=== PATIENT | female | born 1945 | race Caucasian/White ===

== ENCOUNTER 2017-02-05 10:15 | Inpatient (IN) | payer OTHER ==
[2016-12-25 09:09] VITALS: BMI 32.0
--- NOTE | 2016-12-25 10:02 | PAT Medication Instructions ---
Service Date Dec 25, 2016. Current Home Medication List Acetaminophen (Acetaminophen ER), 2 TABS PO BID Aspirin (Aspirin Ec), 81 MG PO QAM Digestive Enzymes (Digestive Enzyme), 1 TAB PO BID Digestive Enzymes (Multi-Enzyme), 1 TAB PO AC Lorazepam (Ativan), 1 MG PO HS Magnesium Oxide (Mag-Ox), 400 MG PO BID Melatonin (Kp Melatonin), 1 TAB PO HS Multiple Minerals W/ Vitamins (Calcium Citrate Plus), 3,000 MG PO BID Multiple Vitamins W/ Minerals (Multi Vitamin/Minerals Fu), 1 TAB PO BID [place] 3 Fatty Acids-[place] 6 Fa ([place] 3-6-9 Complex), 4,000 MG PO BID Potassium (Potassium), 4 TABS PO BID Valerian (Valeriana Officinali (Valerian Root), 1 CAP PEG HS [Homepathic Products], 2 TABS SL HS [vitaminb c ER], 1,000 MG PO HS Medication Instructions For Your Scheduled Surgery - Hold the following medications 2 weeks prior to surgery: [place] 3 Fatty Acids-[place] 6 Fa ([place] 3-6-9 Complex), 4,000 MG PO BID - Hold the following medications the morning of surgery: Potassium (Potassium), 4 TABS PO BID Multiple Minerals W/ Vitamins (Calcium Citrate Plus), 3,000 MG PO BID Multiple Vitamins W/ Minerals (Multi Vitamin/Minerals Fu), 1 TAB PO BID Magnesium Oxide (Mag-Ox), 400 MG PO BID Digestive Enzymes (Digestive Enzyme), 1 TAB PO BID Digestive Enzymes (Multi-Enzyme), 1 TAB PO AC - Take the following medications the morning of surgery with a sip of water: Aspirin (Aspirin Ec), 81 MG PO QAM (okay to take per surgeon) Acetaminophen (Acetaminophen ER), 2 TABS PO BID - Take the following medications as scheduled the night before surgery: Potassium (Potassium), 4 TABS PO BID Multiple Minerals W/ Vitamins (Calcium Citrate Plus), 3,000 MG PO BID Multiple Vitamins W/ Minerals (Multi Vitamin/Minerals Fu), 1 TAB PO BID Melatonin (Kp Melatonin), 1 TAB PO HS Magnesium Oxide (Mag-Ox), 400 MG PO BID Lorazepam (Ativan), 1 MG PO HS Melatonin 3mg PO HS Acetaminophen (Acetaminophen ER), 2 TABS PO BID Digestive Enzymes (Digestive Enzyme), 1 TAB PO BID Digestive Enzymes (Multi-Enzyme), 1 TAB PO AC [vitaminb c ER], 1,000 MG PO HS Valerian (Valeriana Officinali (Valerian Root), 1 CAP PEG HS [Homepathic Products], 2 TABS SL HS If you have any questions please call us at [phone] or [phone] or [phone]
[2016-12-25 10:35] LABS: BASO % 0.3 %; BASO ABS # 0.02 K/uL (0-0.2); COMPLETE YES; EOS % 6.1 %; HEMATOCRIT 39.3 % (37-47); IG% 0.2 %; LYMPH % 32.4 %; LYMPH ABS # 2.11 K/uL (1.2-3.4); MEAN CELL VOLUME 79.9 fL (80-100); MEAN CORPUSCULAR HEMOGLOBIN 25.6 pg (25-34); MEAN CORPUSCULAR HGB CONC 32.1 g/dl (32-36); MEAN PLATELET VOLUME 8.8 fL (7.4-10.4); MONO % 9.7 %; NEUT % 51.3 %; PLATELET COUNT 276 K/uL (130-400); RED BLOOD COUNT 4.92 M/uL (4.2-5.4); WHITE BLOOD COUNT 6.51 K/uL (4.8-10.8)
--- NOTE | 2016-12-25 10:38 | DIAGNOSTIC IMAGING REPORT ---
CHEST PREADMISSION(PA/LAT) CLINICAL HISTORY: PAT preoperative evaluation COMPARISON STUDY: No previous studies for comparison. FINDINGS: Fixed hiatal hernia. Lungs are clear. Diaphragms are smooth. IMPRESSION: Fixed hiatal hernia. Otherwise negative chest. Electronically signed by: Quang Gu M.D. 12/25/2016 10:37 AM Dictated Date/Time: 12/25/2016 10:37 AM
[2016-12-25 10:54] LABS: PROTHROMBIN TIME (PATIENT) 10.7 SECONDS (9.0-12.0)
[2016-12-25 11:51] LABS: BUN/CREATININE RATIO 23.9 (10-20); CREATININE 0.87 mg/dl (0.60-1.20); POTASSIUM 4.1 mmol/L (3.5-5.1)
[2016-12-25 11:56] LABS: CALCIUM 10.2 mg/dl (8.5-10.1)
--- NOTE | 2017-02-01 19:45 | HISTORY & PHYSICAL EXAMINATION ---
DATE OF ADMISSION: 02/05/2017 CHIEF COMPLAINT: Bilateral knee pain, right greater than left. HISTORY OF PRESENT ILLNESS: The patient is a 71-year-old female from [place] who presents for treatment of her knees. She has got a long history of bilateral knee pain and discomfort. The left knee actually has been bothering her for a longer period of time, but the right knee is more intense. She has been through conservative care which provided very temporary relief. Minimal response to injection. She has become more debilitated by her pain, once again right side worse than the left. She has limited walking tolerance. She can do a lot of activities that she would like to due to her pain. She would like to proceed with surgical treatment. PAST MEDICAL HISTORY: Significant for: 1. Heart palpitations without any sequelae. 2. Irritable bowel syndrome. 3. Gastroesophageal reflux disease. 4. Hiatal hernia. 5. Arthritis. 6. Low back pain. PAST SURGICAL HISTORY: Include "female surgeries." ALLERGIES: None. CURRENT MEDICINES: Include: 1. Meloxicam. 2. Lorazepam. 3. Supplements. 4. Herbs. SOCIAL HISTORY: A 71-year-old female patient from [place]. 1-2 drinks per day. No tobacco use. FAMILY HISTORY: Noncontributory. REVIEW OF SYSTEMS: Negative for diabetes. Denies any chest pain or shortness of breath. No history of DVT or PE. No bleeding problems. PHYSICAL EXAMINATION: GENERAL: Reveals a pleasant, healthy elderly female. Looks younger than her stated age. HEENT: Benign. NECK: Supple. No lymphadenopathy. LUNGS: Clear to auscultation. HEART: Has a regular rate and rhythm. ABDOMEN: Soft, nontender, nondistended. EXTREMITIES: Grossly neurovascularly intact except as follows: Examination of both knees reveals the patient ambulates independently. She does limp and walks with a bit of a waddling gait. She has got slight varus alignment of both knees. Moderate soft tissue envelope. Her range of motion is pretty symmetrical with full extension to 120 degrees of flexion bilaterally. She is tender in medial joint line both sides. X-RAYS: X-rays of the knees reveal advanced bilateral knee DJD. The right side is a bit worse than the left, but she has got complete loss of the medial joint space on both sides, a little bit of tibial femoral subluxation. ASSESSMENT: A 71-year-old female with bilateral knee pain and degenerative joint disease, right side is a bit worse than the left and unresponsive to conservative treatment. She would like to proceed with knee replacement surgery. PLAN: We are going to take her to the operating room and do a right total knee replacement. The risks and benefits of right total knee replacement were explained to the patient including but not limited to DVT, PE, , infection, neurological injury, vascular injury, bleeding, pain, limited range of motion, stiffness, failure to relieve her symptoms, incomplete relief of symptoms, need for further surgery in the future, fracture, leg length inequality, nerve palsy, etc. The patient understands and desires to proceed. Informed consent was obtained. The patient has stopped her Meloxicam 2 weeks preop. She is planning to be discharged to home with an [facility] home health program. I will see her back 2 weeks postop. SUHAIL
[2017-02-05] VITALS (9 sets, daily range): BP systolic 94–163; BP diastolic 59–96; PULSE 72–89; TEMP 36.4–37; O2SAT 94–99; Ht 170.2 cm; Wt 95.1 kg
[~2017-02-05] VITALS: Ht 170.2 cm; Wt 95.1 kg
[~2017-02-05 10:15] MED LIST: ACET-1327 PO; ACETAMINOPHEN 500 MG TAB PO SCH; ASPI81TA28 PO; ATV/1 PO; BUPIVACAINE 0.25% 30 ML VIAL ONE; BUPIVACAINE 0.5 % 5 MG/1 ML PF 10ML VIAL ONE; BUPIVACAINE LIPOSOME 266 MG, BUPIVACAINE/EPINEPHRINE INJ 50 ML, SODIUM CHLORIDE 0.9% PF... INFIL SCH; BUPIVACAINE/EPINEPHRINE 0.25% 10 ML VIAL ONE; CEFAZOLIN 2000 MG/60 ML D5W 60 ML IV SCH; DEXAMETHASONE SOD INJ 4 MG/ML VIAL ONE; DIGE1CAP10 PO; DIGETAB PO; FAMOTIDINE 20 MG TAB PO SCH; GABAPENTIN 300 MG CAP PO SCH; LACTATED RINGER'S 1000ML 1,000 ML IV SCH; LACTATED RINGER'S 1000ML 500 ML IV ONE; LACTATED RINGER'S 1000ML IV SCH; MAGN400T6 PO; MELA1TAB5 PO; METOCLOPRAMIDE HCL 10 MG TAB PO SCH; MULT-653 PO; OMEG1CAP71 PO; POTA99TA PO; SCOPOLAMINE 1.5 MG TDSY TD SCH; TRANEXAMIC ACID INJ 1,000 MG in SODIUM CHLORIDE 0.9% 100ML 100 ML IV SCH; VALE450C4 PEG; [UNRECOGNIZED DRUG - CODE] PO; [UNRECOGNIZED DRUG - OTHER] PO; [UNRECOGNIZED DRUG - OTHER] SL
[2017-02-05] MEDS ORDERED: IMD/2 PO (11:11)
[2017-02-05] MEDS ORDERED: metoprolol PO (11:23)
[2017-02-05] MEDS ORDERED: BACITRACIN 50000 UNIT VIAL ONE (11:25)
[2017-02-05] MEDS ORDERED: SODIUM CHLORIDE 0.9% PF 50 ML VIAL ONE (11:25)
[2017-02-05] MEDS ORDERED: BUPIVACAINE LIPOSOME 1/3% 266 MG/20 ML VIAL INFIL ONE (11:25)
--- NOTE | 2017-02-05 11:47 | History & Physical Bridge Note ---
H&P Re-Evaluation Bridge Note: I have examined the patient, reviewed the History & Physical and in the interval since the performance of the History & Physical I have noted the following changes of clinical significance: No changes noted
[2017-02-05] MEDS ORDERED: EpHEDrine SULFATE 50MG/5ML SYR ONE (12:26)
[2017-02-05] MEDS ORDERED: MIDAZOLAM HCL 1 MG/ML 2ML VIAL ONE (12:26)
[2017-02-05] MEDS ORDERED: PROPOFOL IV EMULSION 10 MG/ML 20 ML VIAL IV ONE (12:26)
[2017-02-05] MEDS ORDERED: PHENYLEPHRINE 100MCG/ML 5ML SYR ONE (12:26)
[2017-02-05] MEDS ORDERED: LIDOCAINE HCL 2% 2 ML VIAL (20MG/ML) ONE (12:26)
[2017-02-05] MEDS ORDERED: FENTANYL CITRATE INJ 50 MCG/1 ML 2 ML VIAL ONE (12:26)
[2017-02-05] MEDS ORDERED: FENTANYL CITRATE INJ 50 MCG/1 ML 2 ML VIAL IV PRN (13:00)
[2017-02-05] MEDS ORDERED: ATROPINE SULFATE 0.1 MG/ML 5ML SYR IV PRN (13:00)
[2017-02-05] MEDS ORDERED: EpHEDrine SULFATE INJ 50 MG/ML AMP IV PRN (13:00)
[2017-02-05] MEDS ORDERED: ONDANSETRON INJ 2 MG/ML 2 ML VIAL IV PRN ×2 (13:00→14:00)
[2017-02-05] MEDS ORDERED: BISACODYL 10 MG SUPP PR PRN (14:00)
[2017-02-05] MEDS ORDERED: HYDROmorphone INJ 0.5 MG/0.5 ML SYR IV PRN (14:00)
[2017-02-05] MEDS ORDERED: TRAMADOL HCL 50 MG TAB PO PRN (14:00)
[2017-02-05] MEDS ORDERED: METOCLOPRAMIDE HCL INJ 5 MG/ML 2 ML VIAL IV PRN (14:00)
[2017-02-05] MEDS ORDERED: ZOLPIDEM TARTRATE 5 MG TAB PO PRN (14:00)
[2017-02-05] MEDS ORDERED: SILVER SULFADIAZINE 1% CR 50 GM JAR EXT PRN (14:00)
[2017-02-05] MEDS ORDERED: MAGNESIUM HYDROXIDE SUSP 30 ML UDC PO PRN (14:00)
--- NOTE | 2017-02-05 14:00 | [facility] Post Operative Brief Note ---
Immediate Operative Summary Operative Date Feb 05, 2017. Pre-Operative Diagnosis Right Knee Degenerative Joint Disease Post-Operative Diagnosis Same as preop Procedure(s) Performed Right Total Knee Arthroplasty Surgeon Dr. Denny Mackey Bowling Alley Operator Surgeon(s) Zach Rivas PA-C Estimated Blood Loss 50ml Findings Right Knee DJD Fluids (cc crystalloids) 1700 cc Specimens A. Right Knee Bone and Tissue Drains None Anesthesia Spinal Complication(s) None Disposition Recovery Room / PACU
--- NOTE | 2017-02-05 14:21 | DIAGNOSTIC IMAGING REPORT ---
RIGHT KNEE 2 VIEWS History: Right total knee arthroplasty. Degenerative arthritis. Postop. FINDINGS: The patient is status post a right total knee arthroplasty. The hardware is intact. No fracture or dislocation. Skin gus are in place. IMPRESSION: Right total knee arthroplasty. No evidence for hardware complication. Electronically signed by: Richard Olmedo M.D. 02/05/2017 2:20 PM Dictated Date/Time: 02/05/2017 2:19 PM
--- NOTE | 2017-02-05 14:26 | Anesthesiology Progress Note ---
Anesthesia Post Op Note Date & Time Feb 05, 2017 at 14:25 Vital Signs Pain Intensity: 0 Vital Signs Past 12 Hours Date Time Temp Pulse Resp B/P (MAP) Pulse Ox O2 Delivery O2 Flow Rate FiO2 02/05/17 14:15 81 16 111/66 98 Nasal Cannula 2 02/05/17 14:05 76 15 108/62 100 Nasal Cannula 2 02/05/17 13:59 36.3 77 16 106/62 97 Nasal Cannula 2 02/05/17 10:49 36.7 72 20 163/96 98 Notes Mental Status: alert / awake / arousable, participated in evaluation Pt Amnestic to Procedure: Yes Nausea / Vomiting: adequately controlled Pain: adequately controlled Airway Patency, RR, SpO2: stable & adequate BP & HR: stable & adequate Hydration State: stable & adequate Neuraxial Anesthesia: was administered, sensory block is resolving Anesthetic Complications: no major complications apparent
[2017-02-05] MEDS ORDERED: METO25TA56 PO (15:41)
[2017-02-05] MEDS ORDERED: LOPERAMIDE HCL 2 MG CAP PO PRN (16:00)
[2017-02-05] MEDS ORDERED: DIGESTIVE ENZYMES PO SCH (16:00)
[2017-02-05] MEDS: CHECK SCOPOLAMINE PATCH PLACEMENT SCH (16:12)
[2017-02-05] MEDS: D5W AND 1/2NSS + 20MEQ KCL 1,000 ML IV SCH (16:13)
[2017-02-05] MEDS: KETOROLAC TROMETHAMINE 15 MG/ML VIAL IV. SCH ×2 (16:17→21:59)
--- NOTE | 2017-02-05 17:41 | OPERATIVE REPORT ---
DATE OF OPERATION: 02/05/2017 SURGEON: Denny Mackey MD GENERAL CLERK: Lei Rivas PA-C PREOPERATIVE DIAGNOSIS: Right knee degenerative joint disease. POSTOPERATIVE DIAGNOSIS: Same. PROCEDURE PERFORMED: Right cemented posterior stabilized total knee arthroplasty. COMPLICATIONS: None. ESTIMATED BLOOD LOSS: 50 mL. FLUID REPLACEMENT: 1700 mL crystalloid fluid replacement. TOURNIQUET TIME: 56 minutes at 300 mmHg. ANESTHESIA: Spinal with adductor canal block. DRAINS: None. SPECIMENS: Right knee sent for pathology. OPERATIVE INDICATIONS: The patient is a 71-year-old female who has had a long history of bilateral knee pain and discomfort, right side greater than left. She has been through extensive conservative treatment without adequate relief. X-rays showed advanced medial compartment arthritis. She elected to proceed with operative treatment. OPERATIVE FINDINGS: Operative findings revealed grade 4 [id number] disease in the medial femoral condyle and medial tibial plateau as well as the patellofemoral joint. Of note, there was not extensive eburnation, but there was a full thickness cartilage deficiency medially as well as the patella in the patellofemoral joint. The lateral compartment was fairly well preserved. She had a moderate joint effusion and slight varus deformity to her knee. OPERATIVE IMPLANTS: Operative implants consisted of: 1. Biomet Vanguard size 67.5 right posterior stabilized femoral component. 2. Biomet size 67 tibial tray. 3. A 10-mm posterior stabilized polyethylene insert. 4. A 31 x 8 all poly patella. OPERATIVE PROCEDURE: The patient was taken to the operating room, identified and placed on the operating table in the supine position. All contact areas were appropriately padded. IV antibiotics were provided by the anesthesia team. A spinal anesthetic and adductor canal block had been provided in the holding area. Santa catheter was placed in sterile fashion. Right thigh tourniquet was then placed and the right lower extremity was then prepped and draped in the usual sterile fashion. The right leg was elevated and exsanguinated with an Esmarch and tourniquet was placed at 300 mmHg. An anterior approach to the right knee was then performed through a longitudinal incision centered over the patella. Sharp dissection was carried out through the subcutaneous tissues down to the level of the extensor mechanism. A medial parapatellar arthrotomy incision was made. Some subperiosteal dissection was carried out medially. The fat pad was resected from beneath the patellar tendon. The lateral patellofemoral ligament was released. The patella was everted and the knee was flexed. The osteophytes were taken off the distal femur. The ACL and PCL were then released from the distal femur and the tibia subluxated anteriorly. The external alignment jig was then placed in the anterior face of the tibia and adjusted 14 mm medially. Proximal tibial cut was made to remove about 2-3 mm of bone from the most deficient aspect of the medial tibial plateau. The tibia was sized to a size 67. Attention was then drawn to the femur. The distal femur was entered with a sharp drill bit. Intramedullary canal was suctioned. A right 5-degree valgus cutting guide was placed. Distal femoral cutting block was pinned in place. Distal femoral cut was made to take an additional 3 mm of bone off the distal femur. The distal femur cut was made. The femur was then sized to a 67.5. We actually sized almost 70, but we downsized this due to very narrow medial/lateral dimensions. Even doing this, the component was a little bit big in medial lateral dimension paulson. The AP cutting block was pinned parallel to the epicondylar axis, which was 3 degrees of external rotation. The anterior cut, anterior chamfer, posterior cut, and posterior chamfer cuts were made. Box cutting guide was placed and adjusted slight lateral and the box cut was made. The knee was flexed. The remnants of the medial and lateral menisci were excised. The osteophytes were taken off the posterior aspect of the femur. A trial femoral component was placed. The tibial tray was pinned in maximum external rotation and drill and stem punch were used to create defect in proximal tibia for the tibial tray. The knee was then trialed and the 10-mm insert fit most appropriately. Attention was then drawn to the patella. The patella was cleaned of all soft tissues. Patella thickness measured 20 mm in thickness and was cut down to 12. It was sized to a size 31 patella. Lug holes were drilled for the 31 patella. Lateral osteophyte was removed. Patella button was placed. Knee was taken through range of motion and the patella tracked nicely with no thumbs test. Attention was then drawn toward placement of permanent components. All trial components removed. Bone plug was placed in the distal femur to limit blood loss. A double batch of [place]os G cement was mixed. A right size 67.5 posterior stabilized femoral component, size 67 tibial tray, a 10-mm posterior stabilized polyethylene insert, and a 31 x 8 all poly patella were then cemented in place. The knee was brought out into full extension until cement hardened. A final cement check was then performed. Pericapsular tissues were injected with 100 mL of a combination of 20 mL of Exparel, 30 mL of normal saline, and 50 mL of 0.25% Marcaine with epinephrine. The patient did receive 1 gram of tranexamic acid. The tourniquet was then let down for final tourniquet time of 56 minutes. Hemostasis was assured with use of electrocautery. The wound was once again irrigated. The extensor mechanism was then closed with a combination of #1 PDS suture and #1 Vicryl suture in a [id number] fashion. Extensor mechanism was checked and found to be intact. Subcutaneous tissues were then closed with 2-0 Dexon suture in a buried interrupted fashion. Skin was closed with skin gus. The leg was then cleaned and dried and a sterile dressing of Xeroform, 4 x 4, sterile cast padding and Chris bandage were applied. The patient was then transferred to the recovery room in stable condition. The patient tolerated the procedure well with no complications. All needle and sponge counts were correct at the end of the operation. I attest to the content of the Intraoperative Record and any orders documented therein. Any exception s are noted below.
[2017-02-05] MEDS: FERROUS GLUCONATE 324 MG TAB PO SCH (18:07)
[2017-02-05] MEDS: CEFAZOLIN IV 2,000 MG in DEXTROSE 5% 50ML 50 ML IV SCH (19:58)
[2017-02-05] MEDS ORDERED: TRANEXAMIC ACID INJ 1,000 MG in SODIUM CHLORIDE 0.9% 100ML 100 ML IV SCH (20:00)
[2017-02-05] MEDS ORDERED: VALERIAN PEG SCH (21:00)
[2017-02-05] MEDS ORDERED: [UNRECOGNIZED DRUG - OTHER] PO SCH (21:00)
[2017-02-05] MEDS ORDERED: MULTIPLE MINERALS PO SCH (21:00)
[2017-02-05] MEDS ORDERED: VITAMINS PO SCH (21:00)
[2017-02-05] MEDS ORDERED: POTASSIUM PO SCH (21:00)
[2017-02-05] MEDS: DOCUSATE SODIUM 100 MG CAP PO SCH (21:00)
[2017-02-05] MEDS ORDERED: [UNRECOGNIZED DRUG - OTHER] SL SCH (21:00)
[2017-02-05] MEDS: SENNA 8.6 MG TAB PO SCH (21:00)
[2017-02-05] MEDS ORDERED: TAPENTADOL ER 50 MG TABCR PO SCH (21:00)
[2017-02-05] MEDS ORDERED: NON-FORMULARY MEDICATION (Melatonin (Kp Melatonin) 1 TAB) PO SCH (21:00)
[2017-02-05] MEDS: LORAZEPAM 1 MG TAB PO SCH (21:03)
[2017-02-05] MEDS: METOPROLOL TARTRATE 25 MG TAB PO SCH (21:04)
[2017-02-05] MEDS: MAGNESIUM OXIDE 400 MG TAB PO SCH (21:04)
[2017-02-05] MEDS: CEROVITE ADV FORMULA TAB PO SCH (21:05)
[2017-02-05] MEDS: ASPIRIN 325 MG ECTAB PO SCH (21:05)
[2017-02-05] MEDS: ACETAMINOPHEN 500 MG TAB PO SCH (22:00)
[2017-02-06] VITALS (7 sets, daily range): BP systolic 99–126; BP diastolic 63–86; PULSE 66–74; TEMP 36.9–37.1; O2SAT 93–98
[2017-02-06] MEDS: D5W AND 1/2NSS + 20MEQ KCL 1,000 ML IV SCH ×2 (01:51→12:15)
[2017-02-06] MEDS: ALUMINUM/MAGNESIUM/SIMETH (MAALOX MAX) 30 ML UDC PO PRN ×2 (02:23→17:54)
[2017-02-06] MEDS: CEFAZOLIN IV 2,000 MG in DEXTROSE 5% 50ML 50 ML IV SCH (03:44)
[2017-02-06] MEDS: KETOROLAC TROMETHAMINE 15 MG/ML VIAL IV. SCH ×4 (03:44→22:00)
[2017-02-06 06:00] LABS: MEAN CELL VOLUME 79.1 fL (80-100); MEAN CORPUSCULAR HEMOGLOBIN 26.5 pg (25-34); MEAN CORPUSCULAR HGB CONC 33.5 g/dl (32-36); MEAN PLATELET VOLUME 9.4 fL (7.4-10.4); PLATELET COUNT 237 K/uL (130-400); RED BLOOD COUNT 3.92 M/uL (4.2-5.4)
[2017-02-06] MEDS: ACETAMINOPHEN 500 MG TAB PO SCH ×3 (06:20→21:59)
[2017-02-06 06:32] LABS: BUN/CREATININE RATIO 11.9 (10-20); CREATININE 0.93 mg/dl (0.60-1.20)
[2017-02-06] MEDS: CHECK SCOPOLAMINE PATCH PLACEMENT SCH ×4 (07:30→23:43)
[2017-02-06] MEDS ORDERED: MORP-157 PO (07:56)
[2017-02-06] MEDS ORDERED: ACET-24 PO (07:56)
[2017-02-06] MEDS ORDERED: ASPEC325 PO (07:56)
[2017-02-06] MEDS ORDERED: ULT50X PO (07:56)
[2017-02-06] MEDS ORDERED: FRRG PO (07:56)
--- NOTE | 2017-02-06 07:57 | Discharge Instructions ---
Discharge Instructions Date of Service Feb 06, 2017. Admission Reason for Admission: Right Knee Degenerative Joint Disease Discharge Discharge Diagnosis / Problem: Right Knee Replacement Discharge Goals Goal(s): Decrease discomfort, Improve function, Increase independence, Improve disease control, Therapeutic intervention Activity Recommendations Activity Limitations: per Instructions/Follow-up section Weightbearing Status: Right weightbearing . Instructions / Follow-Up Instructions / Follow-Up ACTIVITY RECOMMENDATIONS: Physical Therapy: * You will go to physical therapy three times each week for four to six weeks after your surgery in order to regain your knee range of motion and to retrain your knee to work properly. * It is just as important to make sure you are getting your knee perfectly straight as it is to regain your knee bend. * Taking a pain pill an hour before therapy can help you have a more productive and comfortable therapy session. Home Exercise: * You were shown a series of exercises (heel props, heel slides, etc.) in the hospital. Do these exercises three to four times each day including the exercises you were shown in physical therapy. Walking: * Get up and walk several times each day. For the first four weeks, try not to stand or walk for more than one hour at a time. If you do stand or walk for more than one hour, you will not hurt anything, but your knee and leg will likely swell. * As you feel comfortable, you may change from the walker or crutches to a cane and then to independent walking. MEDICATIONS: New Medicine: * You will likely be taking one or more of these medications: 1. MS Contin - A long-acting pain medication. Take 1 tablet twice a day for the first ten days to decrease your baseline level of pain. 2. Tramadol - A quick and shorter-acting pain medication. Take one to two tablets every four to six hours to lessen your pain. 3. Iron Sulfate - Take three times each day for the month after surgery to help you replace the blood lost during surgery. 4. Aspirin - Thins your blood to lessen the chance of forming a blood clot. * The most common side effects of pain medicine and iron are nausea and constipation. If nausea or constipation is too much of a problem or if you have any questions about your new medicines or doses, call [facility] at . We will try to help you manage these issues. VERY IMPORTANT TO READ AND REVIEW" Pain: * The immediate post-operative period after knee replacement surgery is often quite painful. * You are given a prescription for pain medicine. You should take it, as directed, when you need it, especially before physical therapy and before going to bed. Pain that interferes with sleep is very common and can last several months. * You will likely need pain medicine for the first four to six weeks. It will not stop all of the pain. The pain will lessen and as you feel better, you may change to milder pain medicine such as Tylenol. * The most common side effects of pain medicine are nausea and constipation, so don't take more than you need. SPECIAL CARE INSTRUCTIONS: TEDs/Elastic Stockings: * The white elastic stockings help limit swelling and prevent blood clots from forming in your legs. The more you wear them, the more they work. * Wear them for six weeks after knee replacement surgery and four weeks after partial knee replacement. Prevention of Infection: * Take antibiotics one hour before any dental cleaning, dental work, urological procedure, gastrointestinal procedure or any invasive surgery in order to prevent your new joint from getting infected. * You may get the antibiotics from the doctor performing the procedure or you may call our office at before and we will call in a prescription to the pharmacy of your choice. Things to Watch For: * Drainage from the incision site that occurs more than one week after your surgery. * Severely increased knee/leg pain or swelling. * Increased redness at the incision site. * Fever above 102 degrees Fahrenheit. * Unusual chest pain or shortness of breath. * Unusual pain or burning with urination. Call [facility] at with any of the above problems or if you have any questions about your medicines or recovery. FOLLOW UP VISIT: Make an appointment to see your doctor for approximately two weeks after surgery for a progress check and staple removal by calling the office at . Current Hospital Diet Patient's current hospital diet: Regular Diet Discharge Diet Recommended Diet: Regular Diet Procedures Procedures Performed: Right Total Knee Arthroplasty Pending Studies Studies pending at discharge: no Medical Emergencies . Who to Call and When: Medical Emergencies: If at any time you feel your situation is an emergency, please call [phone] immediately. . Non-Emergent Contact Non-Emergency issues call your: Surgeon . "Provider Documentation" section prepared by Denny Mackey. . VTE Core Measure Inpt VTE Proph given/why not?: Other Anticoagulation, T.E.DRamsey Stockings, SCD's
--- NOTE | 2017-02-06 08:29 | PROGRESS NOTE ---
DATE: 02/06/2017 SUBJECTIVE: A 71-year-old female postop day #1 from a right knee replacement. She is doing pretty well. Pain is reasonably well controlled. No chest pain or shortness of breath. Not feeling dizzy or lightheaded. OBJECTIVE: VITAL SIGNS: Temperature 37.0. Vital signs stable. GENERAL: Physical examination reveals a pleasant elderly female. She is sitting up in her bedside chair and looks pretty comfortable. LUNGS: Clear to auscultation. HEART: Regular rate and rhythm. ABDOMEN: Soft, nontender, and nondistended. EXTREMITIES: Grossly neurovascularly intact except as follows: Examination of the right leg reveals the dressing to be clean, dry and intact. No significant drainage. She can dorsiflex and plantarflex her foot appropriately. She is neurologically intact. LABORATORY DATA: Hemoglobin 10.4, hematocrit 31.0, and white cell count 11.0. Electrolytes are stable. ASSESSMENT: A 71-year-old female postop day #1 from right knee replacement, doing pretty well. Pain is controlled. She is neurologically intact. PLAN: 1. DVT prophylaxis including thigh-high TEDs, SCDs, and aspirin twice a day. 2. PT/OT. Weightbearing as tolerated. Right total knee protocol. 3. Pain control. Doing well with current pain management. We will continue the Tylenol, Toradol and tramadol as needed. 4. Anemia. Currently asymptomatic. Continue iron supplementation. 5. Disposition: Plan to discharge to home with home health once adequately recovered.
[2017-02-06] MEDS: DOCUSATE SODIUM 100 MG CAP PO SCH ×2 (08:45→21:08)
[2017-02-06] MEDS: CEROVITE ADV FORMULA TAB PO SCH ×2 (08:52→21:07)
[2017-02-06] MEDS: METOPROLOL TARTRATE 25 MG TAB PO SCH ×2 (08:52→21:08)
[2017-02-06] MEDS: PANTOprazole SOD 40 MG TAB PO SCH (08:52)
[2017-02-06] MEDS: ASPIRIN 325 MG ECTAB PO SCH ×2 (08:52→21:08)
[2017-02-06] MEDS: FERROUS GLUCONATE 324 MG TAB PO SCH ×3 (08:52→17:47)
[2017-02-06] MEDS: MAGNESIUM OXIDE 400 MG TAB PO SCH ×2 (08:53→21:08)
[2017-02-06] MEDS ORDERED: MULTIVITAMIN TAB PO SCH (09:00)
--- NOTE | 2017-02-06 10:23 | Anesthesiology Progress Note ---
Anesthesia Post Op Note Date & Time Feb 06, 2017 at 10:22 Vital Signs Pain Intensity: 1.0 Vital Signs Past 12 Hours Date Time Temp Pulse Resp B/P (MAP) Pulse Ox O2 Delivery O2 Flow Rate FiO2 02/06/17 09:52 98 Room Air 02/06/17 07:42 37.0 73 17 112/74 (87) 95 Room Air 02/06/17 07:05 Room Air 02/06/17 03:48 37.0 66 16 99/63 (75) 93 Room Air 02/05/17 23:15 Room Air 02/05/17 23:00 36.8 76 18 94/59 (71) 94 Room Air Notes Mental Status: alert / awake / arousable, participated in evaluation Pt Amnestic to Procedure: Yes Nausea / Vomiting: adequately controlled Pain: adequately controlled Airway Patency, RR, SpO2: stable & adequate BP & HR: stable & adequate Hydration State: stable & adequate Neuraxial Anesthesia: sensory block resolved Anesthetic Complications: no major complications apparent
[2017-02-06] MEDS: SENNA 8.6 MG TAB PO SCH (21:00)
[2017-02-06] MEDS: LORAZEPAM 1 MG TAB PO SCH (21:08)
[2017-02-07] MEDS: KETOROLAC TROMETHAMINE 15 MG/ML VIAL IV. SCH ×2 (04:09→09:01)
[2017-02-07] MEDS: ACETAMINOPHEN 500 MG TAB PO SCH (05:36)
[2017-02-07 05:58] VITALS: BP 133/83; PULSE 68; TEMP 37.2; O2SAT 95
[2017-02-07 06:38] VITALS: BP 171/90; PULSE 65
[2017-02-07] MEDS: ASPIRIN 325 MG ECTAB PO SCH (07:21)
[2017-02-07] MEDS: FERROUS GLUCONATE 324 MG TAB PO SCH (07:21)
[2017-02-07] MEDS: DOCUSATE SODIUM 100 MG CAP PO SCH (07:22)
[2017-02-07] MEDS: PANTOprazole SOD 40 MG TAB PO SCH (07:22)
[2017-02-07] MEDS: MAGNESIUM OXIDE 400 MG TAB PO SCH (07:35)
[2017-02-07] MEDS: CEROVITE ADV FORMULA TAB PO SCH (07:35)
[2017-02-07] MEDS: METOPROLOL TARTRATE 25 MG TAB PO SCH (07:36)
[2017-02-07 07:38] VITALS: BP 124/82; PULSE 79; TEMP 37.2; O2SAT 95
--- NOTE | 2017-02-07 07:46 | Progress Note ---
Orthopedic SOAP Note Subjective Date of Service: Feb 07, 2017. Post OP Day: POD # 2 Reports: feeling well, pain controlled w PO medications Objective calves soft nontender, N/V intact, capillary refill less than 2 sec., dressing C /D/I, toes mobile, CMS intact Date Time Temp Pulse Resp B/P (MAP) Pulse Ox O2 Delivery O2 Flow Rate FiO2 02/07/17 07:38 37.2 79 17 124/82 (96) 95 Room Air 02/07/17 05:58 37.2 68 16 133/83 (100) 95 Room Air 02/06/17 23:15 37.1 70 16 104/66 (79) 93 Room Air 02/06/17 23:15 Room Air 02/06/17 19:36 Room Air 02/06/17 15:05 36.9 66 18 113/76 (88) 96 Room Air 02/06/17 11:28 36.9 68 18 126/86 (99) 97 Room Air 02/06/17 10:38 74 98 02/06/17 09:52 98 Room Air Assessment POD #2 - TKR. Doing well. Plan PT/OT Pain control - doing ok with current regimine DVT prophylaxis - TEDS + SDCs + ECASA Disposition - plan to go home with home health
[2017-02-07 08:27] VITALS: BP 124/82; PULSE 79; TEMP 37.2; O2SAT 95
[2017-02-07 09:11] VITALS: O2SAT 95
[2017-02-07] MEDS: ALUMINUM/MAGNESIUM/SIMETH (MAALOX MAX) 30 ML UDC PO PRN (09:59)
--- NOTE | 2017-02-07 18:31 | EDITING REQUIRED CODING QUERY ---
CODING QUERY ANEMIA To promote full compliance with coding requirements relating to patient care, physician participation is requested in all cases of legal nurse consultant uncertainty. Please assist us with the question(s) below: Coding Question(s): The record reflects the following clinical documentation: Anemia There are several coding choices for this diagnosis and more specificity is needed for code selection. Please indicate the type of anemia this patient had: (X) Acute blood loss anemia ( ) Acute postoperative anemia due to dilutional fluids ( ) Chronic blood loss anemia ( ) Iron deficient anemia due to blood loss ( ) Iron deficiency anemia ( ) Anemia, unspecified or other ( ) Other: (please specify) ( ) Unable to determine Also, was the anemia: ( ) POA ( ) Not POA ( ) Unable to determine, please explain Thank you for your time, CLAUDIA Jordan, DIESEL MECHANIC HELPER
--- NOTE | 2017-02-11 09:40 | Discharge Summary ---
Orthopedic Discharge Summary Admission Date/Reason Feb 05, 2017 at 11:52 Right Knee Degenerative Joint Disease. Discharge Date/Disposition Feb 07, 2017 Home with services Diagnosis Principal Diagnosis: ADVANCED DJD OF RIGHT KNEE Secondary Diagnoses/Problems: 1. Heart palpitations without any sequelae. 2. Irritable bowel syndrome. 3. Gastroesophageal reflux disease. 4. Hiatal hernia. 5. Arthritis. 6. Low back pain. Procedure(s) Performed RIGHT TOTAL KNEE ARTHROPLASTY Admission Physical Exam As per Admitting History & Physical. Hospital Course The patient was admitted on 02/05/2017 and underwent a right total knee arthroplasty. The patient tolerated the procedure well and there were no complications. She was transferred to PACU post operatively and then later to the orthopedic floor for further care. She was given Acef for antibiotic prophylaxis MANSOOR stockings and SCD as well as Aspirin for DVT prophylaxis. By post operative day #2 the patient was tolerating PT and pain was well controlled on medications. Printed discharge instructions were given . Prescriptions for pain were also given. She was to be discharged home with home health. Continue the MANSOOR stocking as well as the Aspirin for DVT prophylaxis. She is to continue physical therapy. She is to follow up in the office in 10-14 days or sooner if there are any concerns. Discharge Instructions Please refer to the electronic Patient Visit Report (Discharge Instructions) for additional information.
== END 2017-02-07 11:52 | disposition home health service (06) | DRG 470 ==
LOC: C.ACU 10:15 → C.3E 11:52 → ENRESERV 15:02
PROVIDERS: ADMIT Orthopaedic Surgery Sports Medicine; ATTEND Orthopaedic Surgery Sports Medicine
PROC: 0SRC0J9 Replacement of Right Knee Joint with Synthetic Substitute, Cemented, Open Approach (ICD-10-PCS; principal; 2017-02-05 13:00)
DX: M17.0 Bilateral primary osteoarthritis of knee (principal); D62 Acute posthemorrhagic anemia; M25.461 Effusion, right knee; M21.161 Varus deformity, not elsewhere classified, right knee; E78.5 Hyperlipidemia, unspecified; E66.9 Obesity, unspecified; Z68.32 Body mass index [BMI] 32.0-32.9, adult; Z87.891 Personal history of nicotine dependence; I25.2 Old myocardial infarction; Z79.82 Long term (current) use of aspirin; Z79.1 Long term (current) use of non-steroidal anti-inflammatories (NSAID); Z79.899 Other long term (current) drug therapy